=== PATIENT | female | born 1955 | race Caucasian/White ===

== ENCOUNTER → 2017-06-09 | Outpatient (CLI) | payer OTHER | LOC: M.RAD 17:11 | DX: R05 Cough (principal); R94.31 Abnormal electrocardiogram [ECG] [EKG] ==

== ENCOUNTER → 2017-12-26 | Outpatient (CLI) | payer OTHER | LOC: M.RAD 07:30 | DX: Z12.31 Encounter for screening mammogram for malignant neoplasm of breast (principal) ==

== ENCOUNTER → 2018-06-06 | Outpatient (CLI) | payer OTHER | LOC: M.CT 11:00 | DX: Z13.6 Encounter for screening for cardiovascular disorders (principal) ==

== ENCOUNTER → 2018-12-29 | Outpatient (CLI) | payer OTHER | LOC: M.RAD 08:48 | DX: Z12.31 Encounter for screening mammogram for malignant neoplasm of breast (principal) ==

== ENCOUNTER → 2019-10-24 | Outpatient (CLI) | payer OTHER | LOC: M.CT 10-03 13:00 | PROVIDERS: ATTEND Family Medicine | DX: J90 Pleural effusion, not elsewhere classified (principal); R93.89 Abnormal findings on diagnostic imaging of other specified body structures; I25.10 Atherosclerotic heart disease of native coronary artery without angina pectoris; K76.0 Fatty (change of) liver, not elsewhere classified ==

== ENCOUNTER → 2020-01-01 | Outpatient (CLI) | payer OTHER | LOC: M.RAD 08:00 | PROVIDERS: ATTEND Family Medicine | DX: Z12.31 Encounter for screening mammogram for malignant neoplasm of breast (principal) ==

== ENCOUNTER → 2020-11-13 | Outpatient (CLI) | payer OTHER ==
[2020-11-13] VITALS (7 sets, daily range): BP systolic 113–124; BP diastolic 54–80
[~2020-11-13] VITALS: Ht 162.6 cm; Wt 82.3 kg
[~2020-11-13] MED LIST: BREO ELLIPTA 11 EACH INH; CHILDREN'S ZYRT10 M1 PO; DOXYCYCLINE 10100 MG PO; HYDROCHLOROTHIA50 MG PO; METFORMIN HCL500 M3 PO; NASONEX17 GM NASAL; PROVENTIL HFA6.7 G1 INH; PROZAC20 M1 PO; SUPER THERAVIT1 EACH PO; SYNTHROID100 MC1 PO; XANAX 0.25 MG0.25 MG PO
[2020-11-13 10:46] LABS: HEMATOCRIT 43.7 % (37.0-47.0); HEMOGLOBIN 14.9 gm/dL (12.0-15.0); MCH 29.1 pg (26.0-34.0); MCHC 34.2 g/dL (28.0-37.0); MCV 84.9 fL (80.0-100.0); MPV 7.3 fl. (7.2-11.1); RBC 5.14 mil/uL (4.20-5.00); RDW-CV 13.4 % (10.5-14.5); WBC 6.1 thou/uL (4.0-11.0)
[2020-11-13 10:58] LABS: ANION GAP 9 mmol/L (7-16); BUN 16 mg/dL (7-18); CALCIUM 9.2 mg/dL (8.5-10.1); CHLORIDE 100 mmol/L (98-107); CO2 32 mmol/L (21-32); CREATININE 0.9 mg/dL (0.6-1.3); GLUCOSE 130 mg/dL (70-99); POTASSIUM 3.3 mmol/L (3.5-5.1); SODIUM 141 mmol/L (136-145)
[2020-11-13 11:00] LABS: APTT 27.4 Seconds (25.0-31.3); PROTIME 10.8 Seconds (9.20-11.50)
[2020-11-13 11:05] LABS: ALBUMIN 3.7 g/dL (3.4-5.0); ALKALINE PHOSPHATASE 115 U/L (46-116); CHOLESTEROL 249 mg/dL (<200); HDL CHOLESTEROL 57 mg/dL (>40); LDL CHOLESTEROL 169 mg/dL (<100); SERUM ASSESSMENT Clear; SGOT 29 U/L (15-37); SGPT 37 U/L (30-65); TC:HDL 4.4 Ratio (Not establshd); TOTAL BILIRUBIN 0.7 mg/dL (<0.1-1.0); TOTAL PROTEIN 7.8 g/dL (6.4-8.2); TRIGLYCERIDE 116 mg/dL (<150); VLDL 23 mg/dL (<40)
--- NOTE | 2020-11-13 16:24 | EKG ---
[place] [address] ELECTROCARDIOGRAM REPORT Name: HANSONFABINAA Room: [facility]#: [id number] Admission: 11/13/20 Attend Phys: Titi Colon, Discharge: Date of : 57 Date of Service: 11/13/20 1117 Report #: [id number] THIS REPORT FOR: //name// [facility] Test Date: 2020-11-13 Test Time: 11:17:47 Pat Name: FABIANA HANSON Department: Room: Gender: F [employer]: / : 1955 Requested By: Titi Colon Order Number: [id number] Reading MD: Kev Mata Measurements Intervals [place] Rate: 93 P: 44 ID: [id number] QRS: 39 QRSD: 84 T: 60 QT: 380 QTc: 473 Interpretive Statements Sinus rhythm Nonspecific ST-T abnormalities Compared to ECG 07/19/2005 10:55:22 Voltage is diminished over the precordium and nonspecific ST-T changes have occurred Electronically Signed On 11-13-2020 16:24:00 CDT by Kev Mata [email or web address] <ELECTRONICALLY SIGNED> By: Kev Mata MD, [facility] 11/13/20 1624 1117 1117 Kev Mata MD, [facility] /EPI
--- NOTE | 2020-11-13 16:43 | CARD ---
[address] [address] CARDIAC CATH REPORT Name: FABIANA HANSON [id number] Admission: 11/13/20 Attend Phys: Titi Colon MD Discharge: Date of : 57 Report #: [id number] THIS REPORT FOR: cc: Nila Faith Linda J. DO Liston, Michael J. MD [facility] ~ ADDENDUM APPROVED REPORT Study performed: 11/13/2020 11:13:59 Patient Details Patient Status: Out-Patient Room #: The patient is a 65 year-old female Event Personnel Titi Colon Service Car Driver, Panchito Morse RTR ScrubJosé Miguel Jessie RTR Monitor, Yue Healy RN floriculture teacher Performed Art Access - R femoral artery Left Heart Cath w/or w/o Coronaries Hemostasis w/ Mynx Admission/Lab Medications/Medications given during procedure Lidocaine Subcut 14 ml, Oxygen Nasal cannula 2 l per min, 0.9% Sodium Chloride IV 75 ml per hr Procedure Narrative The patient was brought electively to the Cardiac Catheterization Laboratory and was prepped and draped in a sterile manner. The right femoral was infiltrated with 2% Lidocaine subcutaneous anesthesia. IV conscious sedation was used throughout procedure with appropriate monitoring and was performed in the presence of a registered nurse who was an independent trained observer other than the physician performing the procedure. A [place] 6 FR sheath was inserted into the right femoral artery. Coronary angiography was performed using coronary diagnostic catheters. The right coronary system was accessed and visualized with a Diagnostic 6 Fr JR 4 catheter. The left coronary system was accessed and visualized with a Diagnostic 6 Fr JL 4 catheter. The left ventricle was accessed and visualized with a Diagnostic 6 Fr Pigtail catheter. Left ventricular/Aortic Valve gradient assessed . Pre-demployment femoral angiogram was performed . Closure device was deployed with a Fr Mynx 6Fr/7Fr. The patient tolerated the procedure well [place] [id number] CARDIAC CATH REPORT Name: FABIANA HANSON Room: [facility]#: [id number] Admission: 11/13/20 Attend Phys: Titi Colon MD Discharge: Date of : 57 Report #: [id number] associated with the procedure. There was no hematoma. Intraoperative Conscious Sedation Sedation start time: 11:48 Case end Time: 12:00 Fentanyl 50 mcg Versed 2 mg Fluoro Time: 2.1 minutes Dose: DAP 29240 cGycm2 623 mGy Contrast Type and Amount: Visipaque 70 ml Diagnostic Cath Left Main The left main is normal and short. The left main bifurcates into a left anterior descending and circumflex coronary arteries. LAD The left anterior descending coronary artery has a moderate 50% plaque proximally. The remainder the vessel is free of significant disease. Diagonal 1 The first diagonal branch has 10% plaquing proximally. Diagonal 2 The second diagonal branch is normal. Circumflex The circumflex coronary artery is normal in its proximal mid and distal portion. OM1 A very small first obtuse marginal branch is free of significant disease. OM2 A very small second obtuse marginal branch is free of significant disease. OM3 The third obtuse marginal branch is a large and branched vessel that is normal. Right Coronary There is minimal 10% plaquing in the proximal and mid portions of the right coronary artery. R PDA The right PDA is a small in caliber vessel with 50% narrowing in its midportion. RPLV A moderate-sized branch right posterior lateral LV branch is normal. Left Ventriculography The left ventricle is normal in size with normal contractility. The left ventricular ejection fraction is estimated to be 65%. Left ventricular wall motion abnormalities are not present. Hemodynamics The aortic pressure is 116/70 mmHg with a mean of 57 mmHg. The left ventricular pressure is 124/9 mmHg [place] [address] CARDIAC CATH REPORT Name: PARVEEN HANSONHLEEN Room: [facility]#: [id number] Admission: 11/13/20 Attend Phys: Titi Colon MD Discharge: Date of : 57 Report #: [id number] ventricular end diastolic pressure is 10 mmHg. Conclusion 1. Mild coronary artery disease with 50% proximal LAD and 50% PDA narrowing noted. 2. Normal left ventricular systolic function. 3. Normal left ventricular end-diastolic pressure. Recommendations 1. Continue aggressive risk factor modification and medical management. <ELECTRONICALLY SIGNED> By: Titi Colon MD, FACC 11/13/20 1643 42 164Micperi Colon MD, FACC /INF
== END | disposition home or self-care (01) ==
LOC: M.CL 09:58
PROVIDERS: ATTEND Internal Medicine Cardiovascular Disease
DX: R07.9 Chest pain, unspecified (principal); I25.10 Atherosclerotic heart disease of native coronary artery without angina pectoris; E11.9 Type 2 diabetes mellitus without complications; E03.9 Hypothyroidism, unspecified; E78.5 Hyperlipidemia, unspecified; E78.00 Pure hypercholesterolemia, unspecified; J45.909 Unspecified asthma, uncomplicated; Z98.890 Other specified postprocedural states; Z20.822 Contact with and (suspected) exposure to COVID-19; Z79.899 Other long term (current) drug therapy; Z88.8 Allergy status to other drugs, medicaments and biological substances; Z88.0 Allergy status to penicillin; Z88.2 Allergy status to sulfonamides

== ENCOUNTER → 2020-12-22 | Outpatient (CLI) | payer OTHER | LOC: M.RAD 13:46 | PROVIDERS: ATTEND Family Medicine | DX: Z12.31 Encounter for screening mammogram for malignant neoplasm of breast (principal) ==

== ENCOUNTER 2021-03-23 13:21 | Emergency (ER) | payer OTHER ==
[~2021-03-23] VITALS: Ht 160 cm; Wt 90.7 kg
[2021-03-23] MEDS ORDERED: NAPROSYN500 M1 PO (13:46)
[2021-03-23 14:01] LABS: ABSOLUTE EOSINOPHILS 0.2 thou/uL (0.0-0.7); ABSOLUTE LYMPHOCYTES 1.1 thou/uL (0.8-5.3); ABSOLUTE MONOCYTES 0.7 thou/uL (0.0-1.2); ABSOLUTE NEUTROPHILS 4.1 thou/uL (1.6-8.1); BASOPHILS 0.8 %; EOSINOPHILS 2.7 %; HEMATOCRIT 46.6 % (37.0-47.0); LYMPHOCYTES 17.4 %; MCH 29.2 pg (26.0-34.0); MCHC 34.3 g/dL (28.0-37.0); MCV 85.2 fL (80.0-100.0); MONOCYTES 11.4 %; MPV 7.2 fl. (7.2-11.1); NUCLEATED RBCS 0 /100WBC; PLATELET COUNT* 327 thou/uL (150-400); POLYS 67.7 %; RBC 5.48 mil/uL (4.20-5.00); RDW-CV 13.5 % (10.5-14.5); WBC 6.1 thou/uL (4.0-11.0)
[2021-03-23 14:08] LABS: CALCIUM 9.7 mg/dL (8.5-10.1)
[2021-03-23 14:18] LABS: ALBUMIN 3.9 g/dL (3.4-5.0); MAGNESIUM 1.7 mg/dL (1.8-2.4); TOTAL BILIRUBIN 0.5 mg/dL (<0.1-1.0); TOTAL PROTEIN 8.1 g/dL (6.4-8.2)
[2021-03-23 15:09] VITALS: BP 143/85
--- NOTE | 2021-03-24 10:38 | EKG ---
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: : 1955 Requested By: Zaid Marcos Order Number: [id number] MD: Titi Colon Measurements Intervals [place] Rate: 100 P: 7 [place]: 129 QRS: -3 QRSD: 79 T: 62 QT: 326 QTc: 421 Interpretive Statements Sinus tachycardia Low voltage, precordial leads Compared to ECG 11/13/2020 11:17:47 Low QRS voltage now present Sinus rhythm no longer present ST (T wave) deviation no longer present Electronically Signed On 03-24-2021 10:37:54 OUTSOLE CASER by Titi Colon [email or web address] <ELECTRONICALLY SIGNED> By: Titi Colon MD, FACC 03/24/21 1037 1340 1340 Titi Colon MD, FAC /EPI
== END 2021-03-23 15:10 | disposition home or self-care (01) ==
LOC: M.ERS 13:21
PROVIDERS: Family Medicine
DX: R00.2 Palpitations (principal); Z20.822 Contact with and (suspected) exposure to COVID-19; R07.89 Other chest pain; E11.9 Type 2 diabetes mellitus without complications; E03.9 Hypothyroidism, unspecified; F41.0 Panic disorder [episodic paroxysmal anxiety]; E78.00 Pure hypercholesterolemia, unspecified; Z87.442 Personal history of urinary calculi; Z90.710 Acquired absence of both cervix and uterus; Z79.899 Other long term (current) drug therapy; Z88.8 Allergy status to other drugs, medicaments and biological substances; Z88.1 Allergy status to other antibiotic agents; Z91.040 Latex allergy status; Z88.0 Allergy status to penicillin; Z88.2 Allergy status to sulfonamides